=== PATIENT | female | born 1975 | race Caucasian/White ===

== ENCOUNTER → 2016-11-14 | Outpatient (CLI) | payer OTHER ==
--- NOTE | 2016-11-14 14:09 | RADIOLOGY REPORT (SQ) ---
CORRECTED REPORT EXAM DESCRIPTION: CT ABDOMEN & PELVIS W/O CONTRAST COMPLETED DATE/TIME: 11/14/2016 1:57 pm REASON FOR STUDY: L FLANK PAIN N20.2 CALCULUS OF KIDNEY WITH CALCULUS OF URETER COMPARISON: None. TECHNIQUE: CT scan of the abdomen and pelvis performed without intravenous or oral contrast. Images reviewed with lung, soft tissue, and bone windows. Reconstructed coronal and sagittal MPR images reviewed. All images stored on PACS. All CT scanners at this facility use dose modulation, iterative reconstruction, and/or weight based dosing when appropriate to reduce radiation dose to as low as reasonably achievable (ALARA). [facility]: Dose Right [facility]: CareDose [facility]: Dose Right [facility]: Teradose 4D [facility]: Scrip-t RADIATION DOSE: 9.63mGy. LIMITATIONS: None. FINDINGS: LOWER CHEST: No significant findings. No nodules or infiltrates. NON-CONTRASTED LIVER, SPLEEN, ADRENALS: Evaluation limited by lack of IV contrast. No identified significant masses. PANCREAS: No masses. No peripancreatic inflammatory changes. GALLBLADDER: No identified stones by CT criteria. No inflammatory changes to suggest cholecystitis. RIGHT KIDNEY AND URETER: No suspicious masses. Assessment limited by lack of IV contrast. No significant calcifications. No hydronephrosis or hydroureter. LEFT KIDNEY AND URETER: No suspicious masses. Assessment limited by lack of IV contrast. No significant calcifications. No hydronephrosis or hydroureter. AORTA AND RETROPERITONEUM: No aneurysm. No retroperitoneal masses or adenopathy. BOWEL AND PERITONEAL CAVITY: Postsurgical change related to gastric bypass. No obvious masses or inflammatory changes. No free fluid. APPENDIX: Normal. PELVIS, BLADDER, AND ABDOMINAL WALL:No abnormal masses. No free fluid. Bladder normal. BONES: Posterior interbody fusion of the L4 through S1 levels without hardware complication. No acute osseous abnormality. OTHER: No other significant finding. IMPRESSION: NO SIGNIFICANT OR ACUTE PROCESS IN THE ABDOMEN OR PELVIS. TECHNICAL DOCUMENTATION: JOB ID: [id number] Quality ID # [id number]: Final reports with documentation of one or more dose reduction techniques (e.g., Automated exposure control, adjustment of the mA and /or kV according to patient size, use of iterative reconstruction technique) 2010 [email or web address]- All Rights Reserved <Electronically signed by MONROE JIMENEZ MD in [place]> 11/14/16 [id number] [facility]
== END ==
LOC: RAD 13:00
PROVIDERS: ATTEND Physician Assistant
DX: N20.2 Calculus of kidney with calculus of ureter (principal)
CPT/HCPCS: 74176; 76380

== ENCOUNTER → 2017-12-19 | Day surgery (SDC) | payer OTHER ==
[~2017-12-19] MED LIST: LIDOCAINE 2% INJ (20 MG/ML) 20 ML MDV ONE
--- NOTE | 2017-12-22 16:19 | WOMENS IMAGING REPORT ---
EXAM DESCRIPTION: U/S BREAST BX; RIGHT DIG DX MAMMO NO CHG COMPLETED DATE/TIME: 12/19/2017 2:45 pm; 12/19/2017 4:01 pm REASON FOR STUDY: INCONCLUSIVE FINDINGS ON DX IMAGING; R92.8 S/P US BX FOR CLIP PLACEMENT R92.8 OTH ABN AND INCONCLUSIVE FINDINGS ON DX IMAGING OF [place] COMPARISON: None. TECHNIQUE: The procedure was discussed with the patient and the patient agreed to proceed. The patient was scanned and the area of interest in the 4 to 5 o'clock position 12 cm from the nipple of the right breast was localized. This correlates with the area of concern on prior imaging studie s. This area was targeted for ultrasound-guided core biopsy. After sterile skin prep and 3 mL local lidocaine 1% for skin and deep tissue anesthesia, a 14 gauge c oaxial core biopsy needle was used to access the lesion of concern. Upon needle placement, the cyst ruptured. 1 core was obtained from the cyst. Under ultrasound guidance, a ribbon clip was placed in the areas sampled. There were no immediate post-procedure complications. MAMMOGRAM: Post-procedure two view mammogram was acquired in the digital mammogram suite. The clip wa s in the expected location. No significant hematoma. Pathology yields a diagnosis of benign tissue no atypia. Pathology is concordant. LIMITATIONS: None. FINDINGS: Ultrasound guided breast biopsy as described above. POST PROCEDURE MAMMOGRAMS FOR MARKER PLACEMENT: Yes IMPRESSION: ULTRASOUND-GUIDED CORE BIOPSY OF THE RIGHT BREAST YIELDS A DIAGNOSIS OF BENIGN BREAST CY ST WITHOUT ATYPIA BI-RADS 2 Benign findings. COMMENT: PATIENT UNDERSTANDS THAT THIS IS A BENIGN DIAGNOSIS AND THAT SHE CAN RETURN TO YEARLY BILAT ERAL SCREENING IN NOVEMBER 2018. PLEASE CONSIDER BILATERAL SCREENING TOMOSYNTHESIS GIVEN HETEROGENEOUSLY DENSE TISSUE. COMMUNICATION: RESULTS DISCUSSED WITH THE PATIENT, 12/22/2017, 1600 HOURS Patient medication list reviewed: Yes- Quality ID# [id number]:Eligible professional attests to documenting i n the medical record they obtained, updated, or reviewed the patient's current medications. TECHNICAL DOCUMENTATION: JOB ID: [id number] [employer]- All Rights Reserved Reading location - IP/workstation name: [email or web address]
== END ==
LOC: WI 13:00
PROVIDERS: ATTEND Physician Assistant
DX: N60.11 Diffuse cystic mastopathy of right breast (principal)
CPT/HCPCS: 88305 ×2; 88342; 19083; J3490

== ENCOUNTER → 2019-10-08 | Outpatient (CLI) | payer OTHER ==
--- NOTE | 2019-10-08 14:46 | RADIOLOGY REPORT (SQ) ---
EXAM DESCRIPTION: MRI LUMBAR SPINE COMBO IMAGES COMPLETED DATE/TIME: 10/08/2019 1:24 pm REASON FOR STUDY: M54.16 RADICULOPATHY, LUMBAR REGION M54.16 RADICULOPATHY, LUMBAR REGION COMPARISON: AP, lateral, and oblique views of the lumbar spine from 10/08/2019. TECHNIQUE: Sagittal and Axial imaging includes T1, T1 post gadolinium, T2, STIR and gradient echo se quences. Coronal T2/HASTE imaging. CONTRAST TYPE AND DOSE: 20 mL Dotarem. RENAL FUNCTION: Not indicated. ACR Type II contrast agent associated with few, if any, unconfounded cases of NSF. LIMITATIONS: None. FINDINGS: VISUALIZED UPPER ABDOMEN: Limited evaluation SEGMENTATION: There are 5 lumbar-type vertebral bodies. There is no transitional anatomy at the lumb osacral junction. ALIGNMENT: There is straightening of the normal lordotic curvature of the lumbar spine. VERTEBRAE: The lumbar vertebral body heights are preserved. There is no fracture. BONE MARROW: High T1/high T2 signal lesion within the T11 vertebral body consistent with a hemangioma . DISC SIGNAL: Status post discectomies with placement of disc prostheses at L4-L5 and L5-S1. The L3-L 4 intervertebral disc is desiccated POSTERIOR ELEMENTS: Left kelle-laminectomies at L4-L5 and L5-S1. HARDWARE: None in the spine. CORD AND CONUS: The conus medullaris terminates at the level of L1 and it is normal in caliber and si gnal intensity. SOFT TISSUES: No abnormality. L1-L2: No spinal or foraminal stenosis. L2-L3: No spinal or foraminal stenosis. L3-L4: Synovial cyst that arises from the right facet joint and projects into the dorsolateral epidur al space resulting in moderate to severe compression of the thecal sac. L4-L5: Evaluation is limited due to the artifact from the hardware. There is no foraminal or spinal stenosis. L5-S1: Evaluation is limited due to the artifact from the hardware. There is no foraminal or spinal stenosis. LOWER THORACIC: No stenosis. SACRUM: Intact. ENHANCEMENT: No abnormal enhancement. OTHER: Transpedicular fusion from L4 to S1. IMPRESSION: Synovial cyst at L3-L4 that arises from the right facet joint and projects into the dors olateral epidural space resulting in moderate to severe compression of the thecal sac. TECHNICAL DOCUMENTATION: JOB ID: [id number] 2011 [employer]- All Rights Reserved Reading location - IP/workstation name: [email or web address]
--- NOTE | 2019-10-08 16:55 | RADIOLOGY REPORT (SQ) ---
EXAM DESCRIPTION: L SPINE W/FLEX/EXT IMAGES COMPLETED DATE/TIME: 10/08/2019 2:54 pm REASON FOR STUDY: M54.16 RADICULOPATHY, LUMBAR REGION M54.16 RADICULOPATHY, LUMBAR REGION COMPARISON: MRI of the lumbar spine from 10/08/2019 NUMBER OF VIEWS: Seven views TECHNIQUE: AP, lateral (with flexion and extension), oblique, and AP standing views of the lumbar sp ine were obtained. LIMITATIONS: None. FINDINGS: MINERALIZATION: Normal. SEGMENTATION: There are 5 lumbar-type vertebral bodies. There is no transitional anatomy at the lumb osacral junction. ALIGNMENT: No spondylolisthesis. FLEXION/EXTENSION: No dynamic subluxation with flexion and extension. VERTEBRAE: The lumbar vertebral body heights are preserved. There is no fracture. DISCS: Discectomies with placement of intervertebral disc prostheses at L4-L5 and L5-S1. POSTERIOR ELEMENTS: Hemilaminectomy defects at L4-L5 and L5-S1. HARDWARE: Status post transpedicular and interbody fusion from L4-S1. OTHER: Tubal ligation clips. IMPRESSION: Status post transpedicular and interbody fusion from L4-S1. The hardware is intact. Th ere is no periprosthetic fracture or dynamic subluxation with flexion and extension. TECHNICAL DOCUMENTATION: JOB ID: [id number] 2010 [employer]- All Rights Reserved Reading location - IP/workstation name: [email or web address]
== END ==
LOC: RAD 12:09
PROVIDERS: ATTEND Specialist
DX: M54.16 Radiculopathy, lumbar region (principal); M71.38 Other bursal cyst, other site
CPT/HCPCS: 72114; 72158